=== PATIENT | male | born 1985 | race Two or more races ===

== ENCOUNTER 2021-10-06 00:07 | Emergency (ER) | payer SELFPAY ==
[~2021-10-06] VITALS: Ht 180.3 cm; Wt 111.1 kg
--- NOTE | 2021-10-06 00:14 | NUR ---
MIHAELA Dowling FROM STREET C/O PT RUNNING INTO TRAFFIC DANGER TO SELF . PT AGGITATED AND NON COMPLIANT WITH CARE. TOLERATING R/A WELL WITH NO SOB. SAFETY MEASURES IN PLACE. PT IN GOWN & BELONGINGS IN LOCKER. CONNECTED PT TO POX AND MONITOR. 1:1 SITTER AT PT'S BEDSIDE. WILL CONTINUE TO REASSESS
[2021-10-06] MEDS ORDERED: OLANZAPINE 10 MG VIAL IM ONE (00:15)
--- NOTE | 2021-10-06 00:19 | NUR ---
[employer] AT PT'S BEDSIDE
--- NOTE | 2021-10-06 00:27 | NUR ---
URINE COLLECTED AND SENT TO LAB
[2021-10-06] MEDS ORDERED: OLANZAPINE 10 MG VIAL IM PRN (00:30)
--- NOTE | 2021-10-06 02:37 | NUR ---
PT SLEEPING IN BED, CALM. VSS. WILL CONTINUE TO MONITOR.
[2021-10-06 03:47] VITALS: BP 139/87
--- NOTE | 2021-10-06 06:06 | NUR ---
Patient discharged to home in stable condition. Written and verbal after care instructions given. Patient verbalizes understanding of instruction.
== END 2021-10-06 06:07 | disposition home or self-care (01) ==
LOC: ER 00:09
DX: F15.129 Other stimulant abuse with intoxication, unspecified (principal)
CPT/HCPCS: 96372; 99285; J3490